=== PATIENT | female | born 1955 | race Two or more races ===

== ENCOUNTER 2020-05-12 13:12 | Outpatient (CLI) | payer MEDICAID ==
[~2020-05-12] VITALS: Ht 160 cm; Wt 74.4 kg
[2020-05-12 13:43] VITALS: BP 129/75
--- NOTE | 2020-05-12 16:30 | Consultation ---
DATE OF CONSULTATION: 05/12/2020 CONSULTING PHYSICIAN: Alexx Fernandez MD CHIEF COMPLAINT: Rectal cancer. PAST MEDICAL HISTORY: 1. DVT. 2. Cataract. 3. Rectal cancer. PAST SURGICAL HISTORY: None. MEDICATIONS: Currently patient on chemotherapy for rectal cancer. FAMILY HISTORY: Noncontributory. SOCIAL HISTORY: Patient denies any tobacco, alcohol, or drug use. ALLERGIES: No known drug allergies. REVIEW OF SYSTEMS: Positive for rectal bleeding. PHYSICAL EXAMINATION: VITAL SIGNS: Temperature 97.7, blood pressure 120/75, pulse is 76, respirations 20. HEENT: Normocephalic, atraumatic. Sclerae are anicteric. NECK: Supple. No evidence of obvious lymphadenopathy. CARDIOVASCULAR: Regular rate and rhythm. Plus S1, S2. LUNGS: Clear to auscultation bilaterally. ABDOMEN: Positive bowel sounds. Soft, nontender. No rebound. No guarding. No peritoneal sign. EXTREMITIES: No cyanosis. No clubbing. No edema. ASSESSMENT AND PLAN: This is a 64-year-old [place] female diagnosed with rectal cancer, currently on chemotherapy, was referred to us by the colorectal surgeon for EUS for staging and also for tattooing for future procedures for future surgeries. Patient was informed the risks and benefits of procedure. The prep was given to her. We will schedule her when the authorization is obtained. Alexx Fernandez M.D. DR: ABEBA JOB#: [id number] CC:
[2020-05-13] MEDS ORDERED: XELODA150 MG ORAL (08:54)
[2020-05-13] MEDS ORDERED: OXALIPLATIN50 MG IV (08:54)
== END 2020-05-12 15:12 | disposition home or self-care (01) ==
LOC: PAN 13:12
DX: C20 Malignant neoplasm of rectum (principal); Z86.718 Personal history of other venous thrombosis and embolism
CPT/HCPCS: G0463